=== PATIENT | male | born 1965 | race Caucasian/White ===

== ENCOUNTER → 2021-07-23 | Outpatient (CLI) | payer OTHER ==
--- NOTE | 2021-07-23 17:02 | CARD ---
MR#: [id number] Date of Study: 07/23/2021 Ordering Physician: KYLEE TEMPLE, Referring Physician: Alton POSADAS: Sergo Gallagher [facility] APPROVED REPORT EXAM: Two-dimensional and M-mode echocardiogram with Doppler and color Doppler. Other Information Quality : AverageHR: 79bpm Rhythm : NSR INDICATION Elevated BNP 2D DIMENSIONS Left Atrium(2D)3.8 (1.6-4.0cm)IVSd1.3 (0.7-1.1cm) Aortic Root(2D)3.5 (2.0-3.7cm)LVDd5.4 (3.9-5.9cm) LVOT Diameter2.2 (1.8-2.4cm)PWd1.3 (0.7-1.1cm) LVDs4.0 (2.5-4.0cm)FS (%) 26.5 % SV73.9 ml Aortic Valve AoV Peak Arjun.261.1cm/sAoV VTI50.4cm AO Peak GR.27.3mmHgLVOT Peak Arjun.105.1cm/s LVOT VTI 21.51cmAO Mean GR.15mmHg JAYSHREE (VMAX)1.98vf9VVW (VTI)1.56cm2 AI P 1/2 Pymc720bp Mitral Valve MV E Qabdsimi22.0cm/sMV DECEL DEWF399qx MV A Clvnyfeq75.8cm/sMV E Mean Gr.2mmHg MV UYU35wfG/A Ratio0.8 MVA (PHT)2.79cm2 TDI E/Lateral E'6.8E/Medial E'10.5 Pulmonary Valve PV Peak Vxbqfgyz305.7cm/sPV Peak Grad.9mmHg Tricuspid Valve TR P. Ovhastap414ok/sTR Peak Gr.24mmHg Pulmonary Vein S1 Qlyvmlob26.6cm/sD2 Oitfmghz96.9cm/s LEFT VENTRICLE The left ventricle is normal size. There is borderline to mild concentric left ventricular hypertroph y. The left ventricular systolic function is normal and the ejection fraction is within normal range. The Ejection Fraction is 50-55%. There is normal LV segmental wall motion. No left ventricle thrombu s noted on this study. There is no ventricular septal defect visualized. There is no left ventricular aneurysm. There is no mass noted in the left ventricle. RIGHT VENTRICLE The right ventricle is normal size. There is normal right ventricular wall thickness. The right ventr icular systolic function is normal. ATRIA The left atrium is mildly dilated. The right atrium size is normal. The interatrial septum is intact with no evidence for an atrial septal defect or patent foramen ovale as noted on 2-D or Doppler imagi ng. AORTIC VALVE The aortic valve is calcified and displays decreased opening. Doppler and Color Flow revealed mild ao rtic regurgitation. There is mild valvular aortic stenosis. Calculated aortic valve area is 1.6 cm2 w ith maximum pressure gradient of 25 mmHg and mean pressure gradient of 14 mmHg. There is no aortic va lvular vegetation. MITRAL VALVE The mitral valve is normal in structure and function. There is no evidence of mitral valve prolapse. There is no mitral valve stenosis. Doppler and Color-flow revealed trace mitral regurgitation. TRICUSPID VALVE The tricuspid valve is normal in structure and function. Doppler and Color Flow revealed trace tricus pid regurgitation. There is no tricuspid valve prolapse or vegetation. There is no tricuspid valve st enosis. PULMONIC VALVE The pulmonary valve is normal in structure and function. GREAT VESSELS The aortic root is normal in size. The ascending aorta is normal in size. The pulmonary artery is nor mal. The IVC is normal in size and collapses >50% with inspiration. PERICARDIAL EFFUSION There is no pleural effusion. There is no evidence of significant pericardial effusion. Critical Notification Critical Value: No <Conclusion> The left ventricle is normal size. The left ventricular systolic function is normal and the ejection fraction is within normal range. The Ejection Fraction is 50-55%. There is borderline to mild concentric left ventricular hypertrophy. Doppler and Color Flow revealed mild aortic regurgitation. There is mild valvular aortic stenosis. Calculated aortic valve area is 1.6 cm2 with maximum pressure gradient of 25 mmHg and mean pressure g radient of 14 mmHg. Doppler and Color-flow revealed trace mitral regurgitation. Doppler and Color Flow revealed trace tricuspid regurgitation. Signed by : Cruz Mata MD Electronically Approved : 07/23/2021 17:01:52
== END ==
LOC: ECHO 08:47
PROVIDERS: ATTEND Nurse Practitioner Primary Care
DX: I35.1 Nonrheumatic aortic (valve) insufficiency (principal); I51.7 Cardiomegaly; R79.89 Other specified abnormal findings of blood chemistry; I10 Essential (primary) hypertension; R01.1 Cardiac murmur, unspecified; F19.90 Other psychoactive substance use, unspecified, uncomplicated
CPT/HCPCS: 93306; C8929